=== PATIENT | male | born 1995 | race African-American/Black ===

== ENCOUNTER → 2016-05-20 17:25 | Emergency (ER) | payer OTHER | END | disposition home or self-care (01) | LOC: CFTX 17:25 | DX: S51.831A Puncture wound without foreign body of right forearm, initial encounter (principal); Z23 Encounter for immunization; J45.909 Unspecified asthma, uncomplicated; F17.210 Nicotine dependence, cigarettes, uncomplicated; W54.0XXA Bitten by dog, initial encounter | CPT/HCPCS: 90471; 90715; 99283 ==